=== PATIENT | male | born 1970 | race Caucasian/White ===

== ENCOUNTER 2019-08-04 12:59 | Outpatient (CLI) | payer BC, SELFPAY ==
--- NOTE | ~2019-08-04 | MR_ITS ---
EXAMINATION: MR hand LT wo/w con DATE: 08/04/2019 15:02 INDICATION: Left hand mass. TECHNIQUE: Magnetic resonance imaging (MRI) of the left hand was performed without and with 14 mL Mul tiHance intravenous contrast. Sequences included axial, coronal, and sagittal T1-weighted FSE and T2- weighted FS FSE, axial T1-weighted FS FSE, and postcontrast axial and coronal T1-weighted FS FSE. COMPARISON: Ultrasound 07/14/2019 FINDINGS: Bone alignment is normal. No fracture. 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 There is a skin marker at the palmar aspect of the hand. There is no abnormal mass in this area. There is subcutaneous fat stranding in the radial aspect of the palm. The flexor and extensor tendons are normal. The musculature is normal. The median nerve is normal. IMPRESSION: 1. Subcutaneous fat stranding at the radial aspect of the palm, likely inflammation or scarring. Reviewed, dictated and finalized at location A. GENCY SPILL RESPONSE TECHNICIAN IMPRESSION: 1. Subcutaneous fat stranding at the radial aspect of the palm, likely inflamma tion or scarring.
[2019-08-04 14:00] LABS: Blood Urea Nitrogen 19 mg/dL (8-26); Estimated Glomerular Filt Rate > 60
== END 2019-08-04 13:00 | disposition home or self-care (01) ==
PROVIDERS: PCP Emergency Medicine; Visit Provider Plastic Surgery
DX: R22.32 Localized swelling, mass and lump, left upper limb (principal)
CPT/HCPCS: 73220; A9577

== ENCOUNTER 2019-08-04 13:00 | Outpatient (CLI) | payer BC, SELFPAY ==
--- NOTE | ~2019-08-04 | US_ITS ---
EXAMINATION: US venous doppler [facility] DATE: 08/04/2019 15:18 INDICATION: History of deep venous thrombosis TECHNIQUE: Millan scale images without and with compression and Doppler images of the bilateral lower e xtremity veins were obtained. COMPARISON: 05/29/2015. FINDINGS: The right common femoral vein, profunda femoral vein, femoral vein, popliteal vein, peroneal trunk, p osterior tibial veins, and greater saphenous vein are patent. The left common femoral vein, profunda femoral vein, femoral vein, popliteal vein, peroneal trunk, po sterior tibial veins, and greater saphenous vein are patent. IMPRESSION: 1. Patent bilateral lower extremity veins. No evidence of deep venous thrombosis. Reviewed, dictated and finalized at location A. L ORGAN PIPE MAKER IMPRESSION: 1. Patent bilateral lower extremity veins. No evidence of deep venous thrombosi s.
== END 2019-08-04 13:01 | disposition home or self-care (01) ==
PROVIDERS: PCP Emergency Medicine; Visit Provider Internal Medicine Hematology & Oncology
DX: Z86.718 Personal history of other venous thrombosis and embolism (principal)
CPT/HCPCS: 93970

== ENCOUNTER → 2020-01-08 09:01 | Outpatient (CLI) | payer BC, SELFPAY ==
--- NOTE | ~2020-01-08 | MR_ITS ---
EXAMINATION: MR shoulder LT wo con DATE: 01/08/2020 09:51 INDICATION: Left rotator cuff insufficiency presenting with left shoulder pain and limited range of m otion. TECHNIQUE: Magnetic resonance imaging (MRI) of the left shoulder was performed without intravenous co ntrast. Sequences included axial PD-weighted FS FSE, coronal oblique PD-weighted FS FSE, coronal obli que T2-weighted FS FSE, sagittal PD-weighted FS FSE, and sagittal T1-weighted SE. COMPARISON: None. FINDINGS: Coracoacromial arch: The acromion undersurface is curved in morphology (type II). The coracoacromial ligament is normal. A cromioclavicular joint is normal. Rotator cuff: Supraspinatus and infraspinatus tendinopathy without discrete tear. The teres minor and subscapularis tendons are normal. There is diffuse nonspecific increased signal throughout the supraspinatus and i nfraspinatus muscle bellies without evident fatty atrophy. The subscapularis tendon is normal. Normal rotator cuff muscle bulk and signal. Biceps tendon, glenoid labrum and glenohumeral cartilage: Long head of the biceps tendon is normal. Glenoid labrum is normal. Glenohumeral cartilage is normal. Fluid: Physiologic amount of fluid in the glenohumeral joint and biceps tendon sheath. No loose osteochondra l bodies. Increased fluid signal in the subacromial/subdeltoid bursa consistent with mild bursitis. Bones/other: Normal marrow signal with no edema, fracture or abnormal marrow replacing process. Suction the supras pinatus and infraspinatus muscle bellies there is normal small and muscle signal throughout the remai nder of the visualized shoulder girdle and upper arm. No abnormal masses or fluid collections identif ied along the course of the suprascapular nerve to suggest impingement. IMPRESSION: 1. Prominent increased muscular fluid signal in the supraspinatus and infraspinatus muscle bellies wi thout evident fatty atrophy. Differential would include muscle strain, denervation change involving t he suprascapular nerve or nonspecific myositis which has a wide differential. 2. Mild supraspinatus and infraspinatus tendinopathy without discrete tear. 3. Mild subacromial/subdeltoid bursitis. Reviewed, dictated and finalized at location A. IMPRESSION: 1. Prominent increased muscular fluid signal in the supraspinatus and infraspin atus muscle bellies without evident fatty atrophy. Differential would include m uscle strain, denervation change involving the suprascapular nerve or nonspecif ic myositis which has a wide differential. 2. Mild supraspinatus and infraspinatus tendinopathy without discrete tear. 3. Mild subacromial/subdeltoid bursitis.
== END ==
PROVIDERS: PCP Emergency Medicine
DX: M25.312 Other instability, left shoulder (principal); M75.52 Bursitis of left shoulder
CPT/HCPCS: 73221

== ENCOUNTER 2021-03-08 13:34 | Emergency (ER) | payer BC, SELFPAY ==
--- NOTE | ~2021-03-08 | US_ITS ---
EXAMINATION: US venous doppler [facility] DATE: 03/08/2021 14:03 INDICATION: Left lower limb pain TECHNIQUE: Grayscale ultrasound images without and with compression and Doppler ultrasound images of the left lower extremity veins were obtained. COMPARISON: None. FINDINGS: The visualized portions of left common femoral vein, profunda (deep) femoral vein, femoral vein, popl iteal vein, peroneal veins, posterior tibial veins, gastrocnemius vein and greater saphenous vein out flow are patent. IMPRESSION: 1. No deep venous thrombosis in the left lower limb. Reviewed, dictated and finalized at location A.
[2021-03-08 13:40] VITALS: BP 127/66; PULSE 67; RESP 20; TEMP 36.7; O2SAT 100
--- NOTE | 2021-03-08 14:16 | ED.EXTPRO ---
HPI - Extremity Problem General Chief complaint: Extremity Problem,Nontraumatic Stated complaint: leg pain Time Seen by Provider: 03/08/21 14:01 Source: patient Mode of arrival: ambulatory Limitations: no limitations History of Present Illness HPI Narrative: This is a 50-year-old male that presents the emergency department for left calf pain x1 week. Reports he did not remember any certain injuries. He started to note a bruise to the area. The calf continue to have some pain which prompted him to be seen as he does have history of DVT. Denies fever, erythema, edema, or numbness. Related Data Allergies Allergy/AdvReac Type Severity Reaction Status Date / Time No Known Allergies Allergy Verified 11/20/18 10:43 Review of Systems Review of Systems: CONSTITUTIONAL: Denies fever SKIN: Denies rash MUSCULOSKELETAL: Reports myalgia. NEUROLOGIC: Denies numbness All systems reviewed & are unremarkable except as noted in HPI and below PMFSH Past Medical History Medical History (Updated 03/08/21 @ 14:20 by Cheryl Aguilar PA-C) DVT (deep venous thrombosis) Surgical History Surgical History No significant past surgical history Family History Family History Mother Hypertension Father Family history of coronary artery disease Social History Social History Smoking status: Never smoker Exam Narrative: GENERAL: Well-appearing, well-nourished, and in no acute distress. HEAD: Normocephalic, atraumatic. EYES: EOMI. EXTREMITIES: Normal range of motion. No edema, erythema or warmth. Compartments are soft. Normal DP pulses. Normal sensation SKIN: Warm, dry, no rash. NEURO: No focal deficits. Alert and oriented x3. PSYCH: Normal mood and affect Course Vital Signs Vital signs: Vital Signs Temperature 98.1 F 03/08/21 13:40 Pulse Rate 67 03/08/21 13:40 Respiratory Rate 20 03/08/21 13:40 Blood Pressure 127/66 03/08/21 13:40 Pulse Oximetry 100 03/08/21 13:40 Temperature 98.1 F 03/08/21 13:40 Pulse Rate 67 03/08/21 13:40 Respiratory Rate 20 03/08/21 13:40 Blood Pressure 127/66 03/08/21 13:40 Pulse Oximetry 100 03/08/21 13:40 MDM - Extremity (Nontraumatic) MDM Narrative Medical decision making narrative: Patient presents to the emergency department for left calf pain. Reports history of DVT. Left lower extremity venous Doppler is without evidence of DVT. No erythema or warmth of the leg. No edema of the leg or obvious deformity. Normal peripheral pulses. Normal sensation. Patient was updated on case findings. He was instructed to follow-up with his primary doctor. He was given warnings to return to ER Imaging Data Radiologist's impression: ITS Impressions Venous Doppler Study 03/08/21 14:06 IMPRESSION: 1. No deep venous thrombosis in the left lower limb. Critical Care Time Critical Care Time Critical Care Time: No Discharge Plan Discharge Clinical Impression: Contusion of left calf Qualifiers: Encounter type: initial encounter Qualified Code(s): S80.12XA - Contusion of left lower leg, initial encounter Patient Disposition: Home, Self-Care Condition: Stable Instructions: Contusion in Adults (ED) Additional Instructions: Return to the emergency department if you experience fever, redness and swelling of your leg, numbness, or any other symptoms that are concerning to you Rest. Ice the area. Tylenol or ibuprofen as needed for discomfort Follow-up with your primary care doctor Prescriptions: No Action Magic Mouthwash 50 mL suspension 5 ml PO QID PRN (Reason: mouth irritation) Qty: 120 RF: 0 amoxicillin 875 mg tablet 875 mg PO Q12H 10 Days Qty: 20 RF: 0 Follow-up/Referrals: Aguila Nuno MD [Primary Care Provider] - 3 Days
== END 2021-03-08 14:28 | disposition home or self-care (01) ==
LOC: ANHED 14:23
PROVIDERS: Emergency Provider Emergency Medicine; PCP Emergency Medicine
DX: S80.12XA Contusion of left lower leg, initial encounter (principal); Z86.718 Personal history of other venous thrombosis and embolism; X58.XXXA Exposure to other specified factors, initial encounter
CPT/HCPCS: 93971; 99284

== ENCOUNTER 2023-01-19 00:42 | Day surgery (SDC) | payer BC, SELFPAY ==
[2023-01-11 12:38] VITALS: BMI 22.7
[2023-01-19 09:45] VITALS: BP 117/76; PULSE 56; RESP 20; TEMP 36.3; O2SAT 100
--- NOTE | 2023-01-19 09:51 | P.PNAN_ITS ---
Anes - Initial Pre Proc Eval Procedure: Operation Date: 01/19/23 10:45 Proposed Procedures p Screening Colonoscopy - Joshua Mahoney MD Date/Time: 01/19/23 09:51 Surgeon: Joshua Mahoney MD Pre Op Diagnosis: neoplasm screening Patient Data Age: 52 Gender: M Height: 1.78 m Weight: 98.4 kg Last Vital Signs Temp 97.4 F L 01/19/23 09:45 Pulse 56 L 01/19/23 09:45 Resp 20 01/19/23 09:45 BP 117/76 01/19/23 09:45 Pulse Ox 100 01/19/23 09:45 O2 Del Method Room Air 01/19/23 09:45 Allergies Allergy/AdvReac Type Severity Reaction Status Date / Time No Known Allergies Allergy Verified 01/19/23 09:43 Home Medications Medication Instructions Recorded Confirmed Type pravastatin 10 mg tablet 10 mg PO DAILY #90 tabs 01/11/23 01/19/23 Rx Patient hx anesthesia problems: none Family hx anesthesia problems: none Results Review: All pre-operative results and documents have been reviewed as part of the pre- operative evaluation. [facility] Past Medical History Medical History (Updated 01/11/23 @ 09:11 by Luis Burns DO) DVT (deep venous thrombosis) Surgical History Surgical History No significant past surgical history Family History Family History Mother Hypertension Father Family history of coronary artery disease Social History Social History Smoking status: Never smoker Alcohol intake: current Drinks per week: 4 Substance use: never Substance use type: does not use Living arrangements: with family Spiritual care concerns: No Anes - Eval Final PreProcedure Day of Procedure 01/19/23 09:51 Patient weight: obese Heart: regular rate and rhythm Lungs: clear to auscultation Airway: Mallampati scale class II Neurological: alert and oriented Last oral intake: >/= 8 hours ASA classification: II Emergent: no Anesthetic plan: proceed Anesthesia type and monitoring: general GIVS and standard monitoring Results Review: All pre-operative results and documents have been reviewed as part of the pre- operative evaluation. Informed Consent: The patient's anesthetic plan and its attendant risks and benefits were discussed with the patient/family/POA. Questions were solicited and answers provided to the satisfaction of the patient/family/POA.
[2023-01-19] MEDS: LACTATED RINGERS 1,000 ML 150 ML IV CONT (09:57)
--- NOTE | 2023-01-19 10:12 | PM.HPGS ---
History of Present Illness History of Present Illness Consent: Risks, benefits, and alternatives have been discussed and questions answered. Patient agrees to proceed with procedure. Chief complaint: neoplasm screening Narrative: Robert Mcconnell is a 52 year old male here for first screening colonoscopy Review of Systems Constitutional: Constitutional: Denies headache(s) and Denies weakness Eyes: Eyes: Denies blurry vision ENT: Reports Normal hearing present, Denies headache(s) and Denies neck pain Cardiovascular: Cardiovascular: Denies chest pain and Denies dyspnea Respiratory: Respiratory: Denies dyspnea Gastrointestinal: Gastrointestinal: Reports no additional gastrointestinal complaints Genitourinary: Genitourinary: Denies dysuria Musculoskeletal: Musculoskeletal: Denies neck pain Integumentary/Breasts: Skin/Breast: Denies dry skin Neurologic: Reports Normal hearing present, Denies headache(s) and Denies weakness Psychiatric: Psychiatric: Denies anxiety Endocrine: Endocrine: Denies change in body appearance Hematologic/Lymphatic: Hematologic/Lymphatic: Denies easy bleeding Allergic/Immunologic: Allergic/Immunologic: Denies urticaria [facility] Past Medical History Medical History (Updated 01/19/23 @ 10:13 by Joshua Mahoney MD) Colon cancer screening DVT (deep venous thrombosis) Surgical History Surgical History No significant past surgical history Family History Family History Mother Hypertension Father Family history of coronary artery disease Social History Social History Smoking status: Never smoker Alcohol intake: current Drinks per week: 4 Substance use: never Substance use type: does not use Living arrangements: with family Spiritual care concerns: No Meds Home Medications and Allergies Home Medications Medication Instructions Recorded Confirmed Type pravastatin 10 mg tablet 10 mg PO DAILY #90 tabs 01/11/23 01/19/23 Rx Allergies Allergy/AdvReac Type Severity Reaction Status Date / Time No Known Allergies Allergy Verified 01/19/23 09:43 Vital Signs Vital Signs - 24 hr 01/19/23 09:45 Temperature 97.4 F L Pulse Rate 56 L Respiratory Rate 20 Blood Pressure 117/76 Pulse Oximetry 100 Oxygen Delivery Room Air Exam Const: General: comfortable and no acute distress HENMT: Face/Nose/Sinus: Normal nares present Eyes: General: appearance normal, both eyes and all related structures Neck: Neck: no JVD Resp: Auscultation: clear to auscultation bilaterally Cardio: Rate: regular rate Rhythm: regular rhythm GI: Inspection: non-distended GI Palp: Yes Soft to palpation Skin: General skin exam: normal color Neuro: General: gait normal Speech: normal speech Extrem: General: normal to inspection Psych: Mental Status: mental status grossly normal Assessment and Plan Assessment and plan (1) Colon cancer screening: Code(s): Z12.11 - Encounter for screening for malignant neoplasm of colon Status: Acute Assessment and Plan: colonoscopy
[2023-01-19 10:32] VITALS: BP 89/60; PULSE 58; RESP 20; O2SAT 99
[2023-01-19 10:42] VITALS: BP 105/67; PULSE 50; RESP 20; O2SAT 100
[2023-01-19 10:52] VITALS: BP 115/65; PULSE 54; RESP 20; O2SAT 100
== END 2023-01-19 10:59 | disposition home or self-care (01) ==
PROVIDERS: PCP Emergency Medicine; Visit Provider Internal Medicine Gastroenterology
PROC: 0DJD8ZZ Inspection of Lower Intestinal Tract, Via Natural or Artificial Opening Endoscopic (ICD-10-PCS; CPT 45378; principal; 2023-01-19 10:45)
DX: Z12.11 Encounter for screening for malignant neoplasm of colon (principal); K64.8 Other hemorrhoids; K57.30 Diverticulosis of large intestine without perforation or abscess without bleeding; E66.9 Obesity, unspecified; Z68.31 Body mass index [BMI] 31.0-31.9, adult
CPT/HCPCS: 45378; J2704; J7120

== ENCOUNTER 2023-02-16 07:32 | Outpatient (CLI) | payer BC, SELFPAY ==
--- NOTE | 2023-02-16 07:34 | ECHO_ITS ---
Patient Info Name: Robert Mcconnell Age: 52 years : 1970 Gender: Male Ht: 70 in Wt: 155 lbs BSA: 1.86 m2 HR: 49 bpm BP: 115 / 76 mmHg Technical Quality: Good Exam Date: 02/16/2023 7:48 AM Exam Location: [facility] Patient Status: Outpatient Admit Date: 02/16/2023 Staff Ordering Physician: Luis Burns DO Pathological Technician: Mojgan Hernandez RDCS Attending Provider: Luis Burns DO Referring Physician: Grant HILLIARD; Exam Type: CA echo doppler color flow Study Info Indications R01.1 - Cardiac murmur, unspecified Complete two-dimensional, color flow and Doppler transthoracic echocardiogram is performed. Summary 1. Complete two-dimensional, color flow and Doppler transthoracic echocardiogram is performed. 2. Left ventricular chamber dimension is normal. 3. Left ventricular systolic function is normal, estimated at 55-60%. 4. The left ventricular diastolic function is normal. 5. E/e' 6 is not elevated. 6. Global longitudinal strain is normal at -21.3%. 7. Left atrial chamber dimension is mildly enlarged. 8. There is mild to moderate mitral valve regurgitation. 9. There is trace tricuspid valve regurgitation. 10. No pulmonary hypertension, estimated pulmonary arterial systolic pressure is 28 mmHg. Left Ventricle E/e' 6 is not elevated. Global longitudinal strain is normal at -21.3%. Left ventricular chamber dimension is normal. Left ventricular systolic function is normal, estimated at 55-60%. The left ventricular diastolic function is normal. Right Ventricle Right ventricular systolic function is normal and with normal TAPSE 2.9 cm. Right ventricular chamber dimension is normal. Left Atria Left atrial chamber dimension is mildly enlarged. Right Atria Right atrial chamber dimension is normal. Aortic Valve The aortic valve is trileaflet. There is no aortic valve stenosis. There is no aortic valve regurgitation. Pulmonic Valve There is no pulmonic regurgitation. Mitral Valve There is no mitral valve stenosis. There is mild to moderate mitral valve regurgitation. Tricuspid Valve There is trace tricuspid valve regurgitation. No pulmonary hypertension, estimated pulmonary arterial systolic pressure is 28 mmHg. Pericardium/Pleural There is no pericardial effusion. Inferior Vena Cava Normal inferior vena cava with >50% collapse upon inspiration consistent with normal right atrial pressure, 5 mmHg. Aorta The aortic root size at the sinus of Valsalva is normal. Left Ventricular Outflow Tract Name Value Normal LVOT 2D LVOT Diameter 2.0 cm LVOT Doppler LVOT Peak Gradient 4 mmHg LVOT Mean Gradient 2 mmHg LVOT VTI 24 cm LVOT VTI/AV VTI Ratio 0.9 LVOT Stroke Volume 74 ml LVOT CO 3.3 l/min LVOT CI 1.8 l/min/m2 Pulmonic Valve Name Value Normal RVOT Doppler
== END 2023-02-16 07:33 | disposition home or self-care (01) ==
PROVIDERS: PCP Emergency Medicine; Visit Provider Internal Medicine Cardiovascular Disease
DX: R01.1 Cardiac murmur, unspecified (principal); I34.0 Nonrheumatic mitral (valve) insufficiency
CPT/HCPCS: 93306

== ENCOUNTER 2024-04-01 12:31 | Emergency (ER) | payer BC, SELFPAY ==
[2024-04-01 13:41] VITALS: BP 102/79; PULSE 51; RESP 16; TEMP 36.4; O2SAT 100
--- NOTE | 2024-04-01 13:55 | ED.SKABFB ---
HPI - Skin/Abscess/Foreign Bdy General Chief complaint: Skin/Abscess/Foreign Body Stated complaint: Bug Bite Time Seen by Provider: 04/01/24 13:55 Source: patient Mode of arrival: ambulatory Limitations: no limitations History of Present Illness HPI narrative: 53 yo M presents with insect bite to R anterior forearm. Reports itching and mild pain. Noticed symptoms yesterday. Concerned for spider bite. All systems reviewed and negative except as noted above. Related Data Allergies Allergy/AdvReac Type Severity Reaction Status Date / Time No Known Allergies Allergy Verified 08/02/23 09:09 Review of Systems Review of Systems: CONSTITUTIONAL: Denies fever, chills, or sweats. EYES: Denies visual changes, redness, or discharge. ENT: Denies rhinorrhea, congestion, sore throat, or otalgia. CARDIOVASCULAR: Denies chest pain, palpitations, or edema. RESPIRATORY: Denies cough or dyspnea. GASTROINTESTINAL: Denies abdominal pain, nausea, vomiting, or diarrhea. GENITOURINARY: Denies dysuria or hematuria. SKIN: Denies rash. Reports insect bite to right forearm with itching and mild pain. MUSCULOSKELETAL: Denies back pain, joint pain, or myalgia. NEUROLOGIC: Denies headache, numbness, or weakness. PSYCHIATRIC: Denies anxiety or depression. All other systems reviewed are negative, except as documented in HPI. [facility] Past Medical History Medical History Colon cancer screening DVT (deep venous thrombosis) Surgical History Surgical History No significant past surgical history Family History Family History Mother Hypertension Father Family history of coronary artery disease Social History Social History (Updated 08/02/23 @ 09:17 by Radha Lawson CMA) Smoking status: Never smoker Alcohol intake: current Drinks per week: 4 Substance use: never Substance use type: does not use Do You Feel Safe in your Home?: Yes Lack of Transportation: No Lack of Food: Never True Current Housing: I Have Housing Concerned About Future Housing: No Difficulty Paying Gas/Electric Bills: No Difficulty Paying for Meds: No Currently Unemployed: No Education: Grade School Difficulty w/ Childcare or Family Care: No Living arrangements: with family Spiritual care concerns: No Comments At time of signature, agree with nursing past medical, surgical, social and family history. There is no relevant family history pertinent to the presenting complaint. Exam Narrative: GENERAL: This is a well-nourished, well-developed patient, in no apparent distress. HEAD: normocephalic, atraumatic. EYES: PERRL. Sclera clear/white. Vision is grossly intact. EARS: External ears normal NOSE: External nose normal NECK: Neck supple, non-tender without lymphadenopathy, masses or thyromegaly. CARDIOVASCULAR: Regular rate and rhythm without murmurs, gallops, or rubs. RESPIRATORY: Clear to auscultation. Breath sounds equal bilaterally. No wheezes, rales, or rhonchi. SKIN: warm, Dry, intact with, good texture and turgor. erythematous lesion to R anterior forearm with pustule to center. mild swelling no fluctuance. NEURO: awake, alert, and oriented to person, place and time. There were no obvious focal neurologic abnormalities. EXTREMITIES: No joint tenderness, effusion, or edema noted. Course Course Level of Care: Express Care Visit Vital Signs Vital signs: Vital Signs Temperature 36.4 C L 04/01/24 13:41 Pulse Rate 51 L 04/01/24 13:41 Respiratory Rate 16 04/01/24 13:41 Blood Pressure 102/79 04/01/24 13:41 Pulse Oximetry 100 04/01/24 13:41 Temperature 36.4 C L 04/01/24 13:41 Pulse Rate 51 L 04/01/24 13:41 Respiratory Rate 16 04/01/24 13:41 Blood Pressure 102/79 04/01/24 13:41 Pulse Oximetry 100 04/01/24 13:41 Revie
== END 2024-04-01 14:07 | disposition home or self-care (01) ==
PROVIDERS: Emergency Provider Nurse Practitioner Family
DX: S50.861A Insect bite (nonvenomous) of right forearm, initial encounter (principal); L08.9 Local infection of the skin and subcutaneous tissue, unspecified; W57.XXXA Bitten or stung by nonvenomous insect and other nonvenomous arthropods, initial encounter; Z86.718 Personal history of other venous thrombosis and embolism
CPT/HCPCS: 99213; G0463

== ENCOUNTER 2024-07-07 16:27 | Emergency (ER) | payer BC, SELFPAY ==
[2024-07-07 16:43] VITALS: BP 113/78; PULSE 54; RESP 16; TEMP 36.6; O2SAT 100
--- NOTE | 2024-07-07 16:48 | ED_ITS ---
HPI - URI/Sore Throat General Chief Complaint: Upper Respiratory Infection Stated Complaint: cough Time Seen by Provider: 07/07/24 16:48 Source: patient Mode of arrival: ambulatory Limitations: no limitations History of Present Illness HPI Narrative: 53-year-old male presents with complaint of cough and chest congestion for approximately 1 week. Reports worsening of cough for the last 2 days with shortness of breath with exertion. Afebrile. Patient taking [id number] Mucinex without relief of symptoms. Patient reports with ?snow storm coming he wanted to get checked out to see his he may need an antibiotic ?. All systems reviewed and negative except as noted above. Related Data Allergies Allergy/AdvReac Type Severity Reaction Status Date / Time No Known Allergies Allergy Verified 07/07/24 16:44 Review of Systems Review of Systems: CONSTITUTIONAL: Denies fever, chills, or sweats. EYES: Denies visual changes, redness, or discharge. ENT: Denies rhinorrhea, congestion, sore throat, or otalgia. CARDIOVASCULAR: Denies chest pain, palpitations, or edema. RESPIRATORY: Reports cough chest congestion and dyspnea with exertion GASTROINTESTINAL: Denies abdominal pain, nausea, vomiting, or diarrhea. GENITOURINARY: Denies dysuria or hematuria. SKIN: Denies rash or itching. MUSCULOSKELETAL: Denies back pain, joint pain, or myalgia. NEUROLOGIC: Denies headache, numbness, or weakness. PSYCHIATRIC: Denies anxiety or depression. All other systems reviewed are negative, except as documented in HPI. [facility], [facility] Past Medical History Medical History Colon cancer screening DVT (deep venous thrombosis) Surgical History Surgical History No significant past surgical history Family History Family History Mother Hypertension Father Family history of coronary artery disease Social History Social History (Updated 08/02/23 @ 09:17 by Radha Lawson CMA) Smoking status: Never smoker Alcohol intake: current Drinks per week: 4 Substance use: never Substance use type: does not use Do You Feel Safe in your Home?: Yes Lack of Transportation: No Lack of Food: Never True Current Housing: I Have Housing Concerned About Future Housing: No Difficulty Paying Gas/Electric Bills: No Difficulty Paying for Meds: No Currently Unemployed: No Education: Grade School Difficulty w/ Childcare or Family Care: No Living arrangements: with family Spiritual care concerns: No Comments At time of signature, agree with nursing past medical, surgical, social and family history. There is no relevant family history pertinent to the presenting complaint. Exam Narrative: GENERAL: This is a well-nourished, well-developed patient, in no apparent distress. HEAD: normocephalic, atraumatic. EYES: PERRL. Sclera clear/white. Vision is grossly intact. EARS: External ears normal, auditory canals clear and without drainage, TMs normal without perforation. Hearing grossly intact. NOSE: External nose normal with no obvious nasal discharge, nares without redness, no rhinorrhea. THROAT: Mucous membranes moist, posterior pharynx clear. NECK: Neck supple, non-tender without lymphadenopathy, masses or thyromegaly. CARDIOVASCULAR: Regular rate and rhythm without murmurs, gallops, or rubs. RESPIRATORY: Crackles to right lower lung field. Breath sounds equal bilaterally. No wheezes, rales, or rhonchi. SKIN: warm, Dry, intact with no suspicious lesions or rash, good texture and turgor. NEURO: awake, alert, and oriented to person, place and time. There were no obvious focal neurologic abnormalities. EXTREMITIES: No joint tenderness, effusion, or edema noted. Course Course Level of Care: Express Care Visit Vital Signs Vital signs: Vital Signs Temperature 36.6 C 07/07/24 16:43 Pulse Rate 54 L 07/07/24 16:43 Respiratory Rate 16 07/07/24 16:43 Blood Pressure 113/78 07/07/24 16:43 Pulse Oximetry 100 07/07/24 16:43 Temperature 36.6 C 07/07/24 16:43 Pulse Rate 54 L 07/07/24 16:43 Respiratory Rate 16 07/07/24 16:43 Blood Pressure 113/78 07/07/24 16:43 Pulse Oximetry 100 07/07/24 16:43 Reviewed MDM - URI/Sore Throat MDM Narrative Medical decision making narrative: Will treat patient for pneumonia with antibiotic due to crackles to right lower lung field. Patient was offered x-ray but did not feel was necessary. Patient well-appearing, nontoxic. Patient is aware of diagnosis, understands and agrees to treatment plan. Anticipatory guidance given. Patient agrees to follow-up as directed and is aware of reasons to seek care at the emergency department. Portions of this record may have been created with voice recognition software Discharge Plan Discharge Clinical Impression: Pneumonia Patient Disposition: Home, Self-Care Condition: Stable Instructions: Antibiotic Form, Pneumonia (ED) Additional Instructions: Take medications as prescribed. Continue taking [id number] Mucinex as directed on packaging. Drink at least 64 oz of water a day. Place humidifier in bedroom where you sleep. Follow-up with your primary care physician if symptoms are not improving. Patient Language: Andorran Prescriptions: New azithromycin 250 mg tablet See Rx Instructions .ROUTE .COMPLEX Qty: 6 0RF Rx Instructions: For 250 mg dose pack: take 500 mg today (day 1), then 250 mg for 4 days (days 2-5) benzonatate 200 mg capsule 200 mg PO TID PRN (Reason: cough) Qty: 20 0RF No Action triamcinolone acetonide 0.1 % cream 1 applic topical BID PRN (Reason: insect bite) Qty: 30 0RF atorvastatin 40 mg tablet See Rx Instructions .ROUTE .COMPLEX Qty: 90 2RF Dose Instruction: TAKE 1 TABLET BY MOUTH DAILY Rx Instructions: TAKE 1 TABLET BY MOUTH DAILY Follow-up/Referrals: Luis Burns DO [Primary Care Provider] - Time of Disposition: 16:54
== END 2024-07-07 16:59 | disposition home or self-care (01) ==
PROVIDERS: Emergency Provider Nurse Practitioner Family; PCP Internal Medicine Cardiovascular Disease
DX: J18.9 Pneumonia, unspecified organism (principal); Z86.718 Personal history of other venous thrombosis and embolism
CPT/HCPCS: 99213; G0463